=== PATIENT | male | born 1960 | race Caucasian/White ===

== ENCOUNTER 2018-04-07 11:31 | Emergency (ER) | payer OTHER ==
[~2018-04-07] VITALS: Ht 167.6 cm; Wt 51.0 kg
[~2018-04-07 11:31] MED LIST: VARE.5 PO; VIAG100T PO
[2018-04-07 11:39] VITALS: BP 150/90; PULSE 76; RESP 16; TEMP 97.7; O2SAT 99
[2018-04-07] MEDS ORDERED: AMLO5TAB2 PO (11:53)
--- NOTE | 2018-04-07 12:15 | PD ---
HPI Chief Complaint: Complaint Time Seen by Provider: 12:02 Travel History International Travel<30 days: No Contact w/Intl Traveler<30days: No Traveled to known affect area: No History of Present Illness HPI 57-year-old male patient presents to the ER today with 2 month history of left testicular swelling and intermittent discomfort. He states that is just been growing in size constantly over the last months and he has not had any fevers, bleeding, abdominal pains, or any other issues. He states it hurts sometimes but is not hurting right now. Modifying Factors: None Associated Signs & Symptoms: Enlarging left testicle for 2 months Risk Factors: None PFSH Past Medical History Diabetes: No Diminished Hearing: No Hypertension: Yes Immunizations Current: No Influenza Vaccination: No ?: Not Past Surgical History Surgical History: Unable to Obtain Other Surgery: Yes (ORTHO ) Social History Alcohol Use: Yes Tobacco Use: Yes (1 PPD) Substance Use: No Allergies-Medications (Allergen,Severity, Reaction): Coded Allergies: No Known Allergies (Verified Adverse Reaction, Unknown, 04/07/18) Reported Meds & Prescriptions Reported Meds & Active Scripts Active Reported Amlodipine (Amlodipine Besylate) 5 Mg Tab 5 Mg PO DAILY Review of Systems Except as stated in HPI: all other systems reviewed are Neg Physical Exam Narrative GENERAL: Well-developed middle-age male patient currently not in acute distress. Awake and oriented 3. SKIN: Focused skin assessment warm/dry. HEAD: Atraumatic. Normocephalic. EYES: Pupils equal and round. No scleral icterus. No injection or drainage. ENT: No nasal bleeding or discharge. Mucous membranes pink and moist. NECK: Trachea midline. No JVD. CARDIOVASCULAR: Regular rate and rhythm. No murmur appreciated. RESPIRATORY: No accessory muscle use. Clear to auscultation. Breath sounds equal bilaterally. GASTROINTESTINAL: Abdomen soft, non-tender, nondistended. Hepatic and splenic margins not palpable. GENITOURINARY: Circumcised. Testes descended bilaterally, with notable enlargement of the left testicle which measures at 10 cm, nontender to palpation , no palpable masses, no erythema. No lesions or erythema. No urethral discharge. MUSCULOSKELETAL: No obvious deformities. No clubbing. No cyanosis. No edema. NEUROLOGICAL: Awake and alert. No obvious cranial nerve deficits. Motor grossly within normal limits. Normal speech. PSYCHIATRIC: Appropriate mood and affect; insight and judgment normal. Data Data Last Documented VS Vital Signs Date Time Temp Pulse Resp B/P (MAP) Pulse Ox O2 Delivery O2 Flow Rate FiO2 04/07/18 13:55 66 16 135/84 (101) 97 Room Air 04/07/18 11:39 97.7 Orders Orders Urinalysis - C+S If Indicated (04/07/18 12:02) Us Testicles W Doppler (04/07/18 12:02) Ed Discharge Order (04/07/18 14:13) Labs Laboratory Tests Test 04/07/18 12:45 Urine Color YELLOW Urine Turbidity CLEAR Urine pH 6.5 Urine Specific [place] 1.020 Urine Protein 30 mg/dL Urine Glucose (UA) NEG mg/dL Urine Ketones NEG mg/dL Urine Occult Blood NEG Urine Nitrite NEG Urine Bilirubin NEG Urine Urobilinogen 2.0 MG/DL Urine Leukocyte Esterase NEG Urine WBC 3-5 /hpf Microscopic Urinalysis Comment CULT NOT INDICATED MDM Medical Decision Making Medical Screen Exam Complete: Yes Emergency Medical Condition: Yes Medical Record Reviewed: Yes Interpretation(s) Last 24 hours Impressions Scrotum Ultrasound 04/07/18 1202 Signed Impressions: CONCLUSION: 1. Moderate left hydrocele 2. Small left epididymal cyst 3. Symmetrical blood flow Laboratory Tests Test 04/07/18 12:45 Urine Protein 30 mg/dL (NEG-TRACE) Differential Diagnosis Left testicular enlargement: Testicular mass versus orchitis versus testicular torsion versus hernia Narrative Course Ultrasound shows a moderate size hydrocele in the left side which is causing scrotal enlargement. Testicle appears to be within normal limits with no masses or signs of torsion. At this point, my plan would be to release the patient would follow-up to his primary care doctor for further evaluation of this issue. He has also been experiencing weight loss which he can talk to his primary care doctor about, since symptoms have been going on for at least 2 months. Return for worsening in symptoms as needed. The plan has been discussed with him he states understanding. Diagnosis Primary Impression: Hydrocele in adult Disposition: 01 DISCHARGE HOME Condition: Stable Mary Taylor MD Apr 07, 2018 12:15
[2018-04-07 12:56] LABS: BILIRUBIN, URINE NEG (NEG); BLOOD, URINE NEG (NEG); GLUCOSE,URINE NEG (NEG); KETONE, URINE NEG (NEG); NITRITE,URINE NEG (NEG); PH, URINE 6.5 (5.0-8.5); URINE COLOR YELLOW (YELLW/STRAW); URINE LEUKOCYTE ESTERASE NEG (NEG)
[2018-04-07 13:55] VITALS: BP 135/84; PULSE 66; RESP 16; O2SAT 97
--- NOTE | 2018-04-07 13:57 | RADRPT ---
EXAM DATE: 04/07/2018 1:52 PM EDT AGE/SEX: 57 years / Male INDICATIONS: Testicular pain. CLINICAL DATA: This is the patient's initial encounter. Patient reports that signs and symptoms have been present for 3 months and indicates a pain score of 7/10. MEDICAL/SURGICAL HISTORY: Hypertension. . Left finger repair. Right knee surgery. COMPARISON: No prior exams available for comparison. MEASUREMENTS: Right Testicle:__4.5 x 3.4 x 2.0 cm Left Testicle:__4.7 x 4.0 x 3.0 cm FINDINGS: RIGHT: Testicle appears normal. There is a small right hydrocele evident. Flow is symmetric. Epididymis appe ars normal LEFT: Left testicle is homogeneous. Moderate left hydrocele. Symmetrical flow is evident. Small 7 mm Epididymal cyst is evident. CONCLUSION: 1. Moderate left hydrocele 2. Small left epididymal cyst 3. Symmetrical blood flow Electronically signed by: Irwin Kat MD 04/07/2018 1:56 PM EDT
== END 2018-04-07 14:31 | disposition home or self-care (01) ==
LOC: PHED 11:31
DX: N43.3 Hydrocele, unspecified (principal); N50.3 Cyst of epididymis; I10 Essential (primary) hypertension; F17.210 Nicotine dependence, cigarettes, uncomplicated
CPT/HCPCS: 76870; 81001; 93975